=== PATIENT | female | born 1975 | race Caucasian/White ===

== ENCOUNTER → 2018-07-06 | Outpatient (REF) | payer OTHER ==
[2018-07-10 14:53] LABS: HPV HYBRID CAPTURE II Negative (Negative)
== END ==
LOC: M SFHCWAGY 09:16
PROVIDERS: ATTEND Nurse Practitioner Women's Health
DX: Z12.4 Encounter for screening for malignant neoplasm of cervix (principal)

== ENCOUNTER → 2018-07-20 | Outpatient (CLI) | payer OTHER ==
--- NOTE | 2018-07-20 15:18 | REPMRS ---
Patient History The patient states she has not had a clinical breast exam in over a year. No known family history of cancer. No Hormone Replacement Therapy Digital Woman Screen Mammo: July 20, 2018 - Exam #: [id number] Bilateral CC and MLO view(s) were taken. Technologist: Shama Cosby, Technologist No prior studies available for comparison. FINDINGS: There are scattered fibroglandular densities. There is no evidence of dominant mass, architectural distortion, or clustered microcalcification typical of malignancy. 3-D tomosynthesis shows no additional findings. Assessment: BI-RADS/ACR category 1 mammogram. Negative Mammogram. Recommendation Routine screening mammogram of both breasts in 1 year (for women over age 40). This patient's Lifetime Breast Cancer RIsk is estimated at 12.4 %. This mammogram was interpreted with the aid of an FDA-approved computer-aided dectection system. Electronically Signed By: Albaro Henriquez MD 07/20/18 0870
== END ==
LOC: M WHC 12:14
PROVIDERS: ATTEND Nurse Practitioner Women's Health
DX: Z12.31 Encounter for screening mammogram for malignant neoplasm of breast (principal)

== ENCOUNTER → 2018-11-20 | Outpatient (REF) | payer OTHER ==
[2018-11-20 16:34] LABS: FREE T4 0.97 NG/DL (0.76-1.46); THYROID STIMULATING HORMONE 1.55 uIU/ML (0.358-3.740)
== END ==
LOC: M SFHCWAGY 13:26
PROVIDERS: ATTEND Nurse Practitioner Women's Health
DX: N92.6 Irregular menstruation, unspecified (principal)

== ENCOUNTER → 2018-12-04 | Outpatient (CLI) | payer OTHER ==
--- NOTE | 2018-12-05 12:02 | REP ---
Clinical: Irregular menstrual cycles. Technique: Transabdominal pelvic ultrasound followed by transvaginal examination for better evaluation of the endometrium and adnexa. Findings: Normal bladder measures 13.2 x 11.3 x 8.3 cm. Anteverted right deviated uterus measures 13.2 x 4.5 x 6.4 cm. Endometrial complex measures 15.2 mm thickness. Multiple Nabothian cysts are noted measuring up to 12 mm. Right ovary not visualized. Left ovary measures 4.5 x 2.3 x 4.6 cm with 3.2 x 2.1 x 3.3 cm cysts. No pelvic fluid or adnexal mass lesion. Impression: 1. Nabothian cysts measuring up to 12 mm. 2. Right ovary not visualized. 3.3 cm left ovarian cyst. Consider reevaluation in 4-6 weeks to evaluate for resolution.
== END ==
LOC: M WHC 08:41
PROVIDERS: ATTEND Nurse Practitioner Women's Health
DX: N83.202 Unspecified ovarian cyst, left side (principal)

== ENCOUNTER → 2018-12-26 | Outpatient (REF) | payer OTHER | LOC: M SFHCWAGY 10:54 | PROVIDERS: ATTEND Nurse Practitioner Women's Health | DX: N92.1 Excessive and frequent menstruation with irregular cycle (principal) ==

== ENCOUNTER → 2019-01-17 | Outpatient (CLI) | payer OTHER ==
--- NOTE | 2019-01-17 09:52 | REP ---
PELVIC ULTRASOUND: Real-time sonographic evaluation of the pelvis performed utilizing transabdominal and endovaginal technique. Bladder measures 14.3 x 1.2 x 10.8 cm. Uterus measures 11.4 x 4.1 x 6.3 cm. Small nabothian cysts are seen in the region of the cervix. Right posterior fundal fibroid measures 2.1 x 2.0 x 2.7 cm. Endometrial thickness is approximately 5 mm. Right ovary measures 2.4 x 1.0 x 2.2 cm and left ovary 2.0 x 1.4 x 2.8 cm. No adnexal mass or free fluid is seen. Previously noted left ovarian cyst, as seen on the prior study of 12/04/2018, is not visualized on today's exam. IMPRESSION: Right fundal fibroid 2.7 cm maximally. Resolution of left ovarian cyst.
== END ==
LOC: M WHC 08:29
PROVIDERS: ATTEND Nurse Practitioner Women's Health
DX: N83.202 Unspecified ovarian cyst, left side (principal)

== ENCOUNTER → 2019-11-20 | Outpatient (REF) | payer OTHER ==
[2019-12-21 11:52] LABS: HEMATOCRIT 40.3 % (36.0-47.0); HEMOGLOBIN 12.3 g/dl (12.0-15.5); MEAN CORPUSCULAR HGB CONC 30.5 g/dl (32.0-36.5); MEAN CORPUSCULAR VOLUME 88.4 fl (80.0-96.0); PLATELET COUNT, AUTOMATED 346 10^3/uL (150-450); RED BLOOD COUNT 4.56 10^6/uL (4.00-5.40); WHITE BLOOD COUNT 4.6 10^3/uL (4.0-10.0)
[2020-01-04 11:01] LABS: BLOOD UREA NITROGEN 10 MG/DL (7-18); CARBON DIOXIDE LEVEL 29 MEQ/L (21-32); CHLORIDE LEVEL 107 MEQ/L (98-107); CREATININE FOR GFR 0.97 MG/DL (0.55-1.30); GLOMERULAR FILTRATION RATE > 60.0 (>58); GLUCOSE, FASTING 98 MG/DL (70-100); POTASSIUM SERUM 4.7 MEQ/L (3.5-5.1); SODIUM LEVEL 140 MEQ/L (136-145)
[2020-01-04 11:02] LABS: ALBUMIN 3.4 GM/DL (3.2-5.2); ALT/SGPT 22 U/L (12-78); BILIRUBIN,TOTAL 0.3 MG/DL (0.2-1.0); CALCIUM LEVEL 8.9 MG/DL (8.5-10.1); CHOLESTEROL LEVEL 288 MG/DL (<200); CHOLESTEROL RISK RATIO 6.697 (<5); HDL CHOLESTEROL 43 MG/DL (>40); LDL CHOLESTEROL 218 MG/DL (<100); NON-HDL-C 245 MG/DL; TOTAL PROTEIN 6.8 GM/DL (6.4-8.2); TRIGLYCERIDES LEVEL 133 MG/DL (<150)
== END ==
LOC: M LABWUC 08:20
PROVIDERS: ATTEND Family Medicine
DX: Z00.00 Encounter for general adult medical examination without abnormal findings (principal)

== ENCOUNTER → 2022-08-12 | Outpatient (REF) | payer OTHER | LOC: M SFHCWAGY 13:19 | PROVIDERS: ATTEND Nurse Practitioner Family | DX: Z12.4 Encounter for screening for malignant neoplasm of cervix (principal) ==

== ENCOUNTER → 2022-08-12 | Outpatient (CLI) | payer OTHER | LOC: M WHC 09:41 | PROVIDERS: ATTEND Nurse Practitioner Family | DX: Z12.31 Encounter for screening mammogram for malignant neoplasm of breast (principal) ==

== ENCOUNTER → 2023-09-14 | Outpatient (CLI) | payer BC, OTHER | LOC: M WHC 08:49 | PROVIDERS: ATTEND Nurse Practitioner Family | DX: Z12.31 Encounter for screening mammogram for malignant neoplasm of breast (principal) ==

== ENCOUNTER → 2023-09-14 | Outpatient (REF) | payer BC, OTHER ==
[2023-09-16 12:04] LABS: HPV APTIMA Not Detected (Not Detected)
== END ==
LOC: M SFHCWAGY 13:36
PROVIDERS: ATTEND Nurse Practitioner Family
DX: Z12.4 Encounter for screening for malignant neoplasm of cervix (principal)
CPT/HCPCS: 87624; G0123

== ENCOUNTER → 2024-01-18 | Outpatient (CLI) | payer BC, OTHER ==
[2024-01-18 12:57] LABS: BASO % 0.7 % (0.0-1.0); EOS % 0.7 % (0.0-3.0); HEMATOCRIT 42.7 % (36.0-47.0); HEMOGLOBIN 13.9 g/dl (12.0-15.5); LYMPH # 1.4 10^3/uL (1.5-5.0); LYMPH % 24.3 % (24.0-44.0); MEAN CORPUSCULAR HEMOGLOBIN 30.6 pg (27.0-33.0); MEAN CORPUSCULAR HGB CONC 32.6 g/dl (32.0-36.5); MEAN CORPUSCULAR VOLUME 94.1 fl (80.0-96.0); MONO # 0.4 10^3/uL (0.0-0.8); MONO % 6.1 % (2.0-8.0); PLATELET COUNT, AUTOMATED 353 10^3/uL (150-450); RED BLOOD COUNT 4.54 10^6/uL (4.00-5.40); WHITE BLOOD COUNT 5.9 10^3/uL (4.0-10.0)
[2024-01-18 13:46] LABS: ALBUMIN 3.6 G/DL (3.2-5.2); ALKALINE PHOSPHATASE 85 U/L (46-116); ALT/SGPT 14 U/L (7.0-40); AST/SGOT 13 U/L (<34); BILIRUBIN,TOTAL 0.3 MG/DL (0.3-1.2); BLOOD UREA NITROGEN 12 MG/DL (9-23); CALCIUM LEVEL 9.6 MG/DL (8.5-10.1); CARBON DIOXIDE LEVEL 29 MMOL/L (20-31); CHLORIDE LEVEL 106 MMOL/L (98-107); CHOLESTEROL LEVEL 295 MG/DL (<200); CHOLESTEROL RISK RATIO 5.32 (<5); CREATININE FOR GFR 0.77 MG/DL (0.55-1.30); GLOMERULAR FILTRATION RATE > 60.0 (>58); GLUCOSE, FASTING 103 MG/DL (60-100); HDL CHOLESTEROL 55.4 MG/DL (>40); LDL CHOLESTEROL 222.2 MG/DL (<100); NON-HDL-C 239.6 MG/DL; POTASSIUM SERUM 4.6 MMOL/L (3.5-5.1); SODIUM LEVEL 140 MMOL/L (136-145); TOTAL PROTEIN 6.7 G/DL (5.7-8.2); TRIGLYCERIDES LEVEL 87 MG/DL (<150)
== END ==
LOC: M WUC 09:53
PROVIDERS: ATTEND Family Medicine
DX: Z00.00 Encounter for general adult medical examination without abnormal findings (principal)

== ENCOUNTER 2024-04-24 07:52 | Day surgery (SDC) | payer BC ==
[~2024-04-24] VITALS: Ht 154.9 cm; Wt 88.0 kg
[~2024-04-24 07:52] MED LIST: ESTA0.25 PO; ROSU20TA86 PO
[2024-04-24] MEDS ORDERED: LIDOCAINE 2% 100MG/5ML SDV (FOR ANES.) As Ordered ONE (10:28)
[2024-04-24] MEDS ORDERED: propofoL 200 MG/20 ML VIAL As Ordered ONE (10:28)
[2024-04-24] MEDS ORDERED: GLYCOPYRROLATE INJ 0.2 MG/ML 2 ML VIAL As Ordered ONE (10:49)
[2024-04-24 10:55] VITALS: TEMP 98.4
[2024-04-24 11:17] VITALS: BP 121/65; O2SAT 99
== END 2024-04-24 11:30 | disposition home or self-care (01) ==
LOC: M OPP 07:52
PROVIDERS: ATTEND Surgery
DX: Z12.11 Encounter for screening for malignant neoplasm of colon (principal); Z12.12 Encounter for screening for malignant neoplasm of rectum; D12.0 Benign neoplasm of cecum; Z79.3 Long term (current) use of hormonal contraceptives; Z98.51 Tubal ligation status
CPT/HCPCS: 45380; 88305; J1596

== ENCOUNTER → 2024-07-25 | Outpatient (CLI) | payer BC ==
[2024-07-25 13:42] LABS: ALBUMIN 3.3 G/DL (3.2-5.2); BILIRUBIN,TOTAL 0.3 MG/DL (0.3-1.2); CALCIUM LEVEL 8.9 MG/DL (8.5-10.1); CHOLESTEROL RISK RATIO 5.62 (<5); CREATININE FOR GFR 0.82 MG/DL (0.55-1.30); GLOMERULAR FILTRATION RATE 88.7 (>58); HDL CHOLESTEROL 52.6 MG/DL (>40); LDL CHOLESTEROL 204.4 MG/DL (<100); NON-HDL-C 243.4 MG/DL; POTASSIUM SERUM 4.2 MMOL/L (3.5-5.1); TOTAL PROTEIN 6.5 G/DL (5.7-8.2)
== END ==
LOC: M WUC 08:36
PROVIDERS: ATTEND Family Medicine
DX: E78.5 Hyperlipidemia, unspecified (principal)

== ENCOUNTER → 2025-01-30 | Outpatient (REF) | payer BC ==
[2025-02-01 14:12] LABS: HPV APTIMA Not Detected (Not Detected)
== END ==
LOC: M PLALAB 09:24
PROVIDERS: ATTEND Nurse Practitioner Family
DX: Z12.4 Encounter for screening for malignant neoplasm of cervix (principal)
CPT/HCPCS: 87070; 87624; G0123

== ENCOUNTER → 2025-01-30 | Outpatient (CLI) | payer BC | LOC: M WHC 08:58 | PROVIDERS: ATTEND Nurse Practitioner Family | DX: Z12.31 Encounter for screening mammogram for malignant neoplasm of breast (principal); R92.313 Mammographic fatty tissue density, bilateral breasts; N63.14 Unspecified lump in the right breast, lower inner quadrant | CPT/HCPCS: 77063; 77067; 87070; 87624; G0123 ==

== ENCOUNTER → 2025-03-05 | Outpatient (CLI) | payer BC | LOC: M WHC 09:34 | PROVIDERS: ATTEND Nurse Practitioner Family | DX: R92.8 Other abnormal and inconclusive findings on diagnostic imaging of breast (principal) | CPT/HCPCS: 76642; 77065; G0279 ==

== ENCOUNTER → 2025-03-26 | Outpatient (CLI) | payer BC ==
[2025-03-26 08:53] VITALS: BP 126/76; O2SAT 100
== END ==
LOC: M WHCPRO 07:40
PROVIDERS: ATTEND Nurse Practitioner Family
DX: C50.211 Malignant neoplasm of upper-inner quadrant of right female breast (principal); R92.2 Inconclusive mammogram; N63.12 Unspecified lump in the right breast, upper inner quadrant; N63.13 Unspecified lump in the right breast, lower outer quadrant